=== PATIENT | male | born 1955 ===

== ENCOUNTER 2025-07-28 13:52 | Outpatient (REF) | payer MEDICARE, SELFPAY ==
--- NOTE | 2025-07-28 | EMG_ITS ---
Chief complaint: Bilateral hand numbness particularly 1st 3rd digits, left worse than right Reason for referral: Evaluate for Carpal Tunnel Syndrome Referred by: Dr. Davies Procedure done: Bilateral upper extremities NCS/EMG Precautions and/or limitations: None The limb temperature was monitored continuously and remained between 32-36 degrees C during the performance of the NCS. Nerve Conduction Studies Anti Sensory Summary Table ?Stim Site NR Onset (ms) Norm Onset (ms) Peak (ms) Norm Peak (ms) O-P Amp (?V) Norm O-P Amp Site1 Site2 Delta-0 (ms) Dist (cm) Paul (m/s) Norm Paul (m/s) Left Median Anti Sensory (2nd Digit) Wrist NR <3.6 >10 Wrist 2nd Digit 14.0 Right Median Anti Sensory (2nd Digit) Wrist NR <3.6 >10 Wrist 2nd Digit 14.0 Left Radial Anti Sensory (Thumb) Forearm ? 2.2 2.7 <3.1 18.2 Forearm Thumb 2.2 0.0 Left Ulnar Anti Sensory (5th Digit) Wrist ? 2.9 3.9 <3.7 17.6 >15.0 Wrist 5th Digit 2.9 14.0 48 Right Ulnar Anti Sensory (5th Digit) Wrist ? 2.7 3.6 <3.7 24.4 >15.0 Wrist 5th Digit 2.7 14.0 52 Motor Summary Table ?Stim Site NR Onset (ms) Norm Onset (ms) O-P Amp (mV) Norm O-P Amp iAmp (mV) Amp (1st) (%) Site1 Site2 Delta-0 (ms) Dist (cm) Paul (m/s) Norm Paul (m/s) Left Median Motor (Abd Poll Brev) Wrist ? 10.3 <3.9 4.1 >4.5 5.0 100.0 Elbow Wrist 4.3 21.3 50 >45 Elbow ? 14.6 3.8 4.8 92.7 Right Median Motor (Abd Poll Brev) Wrist ? 7.7 <3.9 6.0 >4.5 7.6 100.0 Elbow Wrist 5.7 23.0 40 >45 Elbow ? 13.4 4.6 6.0 76.7 Left Ulnar Motor (Abd Dig Minimi) Wrist ? 3.0 <3.0 10.6 >5 14.5 100.0 B Elbow Wrist 4.7 22.0 47 >45 B Elbow ? 7.7 9.9 13.5 93.4 A Elbow B Elbow 1.7 10.0 59 >45 A Elbow ? 9.4 9.5 13.2 89.6 Right Ulnar Motor (Abd Dig Minimi) Wrist ? 3.5 <3.0 10.1 >5 15.0 100.0 B Elbow Wrist 4.4 22.0 50 >45 B Elbow ? 7.9 9.3 13.8 92.1 A Elbow B Elbow 1.2 10.0 83 >45 A Elbow ? 9.1 8.4 12.3 83.2 EMG ?Side Muscle Nerve Root Ins Act Fibs Psw Amp Dur Poly Recrt Int Pat Comment Right 1stDorInt Ulnar C8-T1 Nml Nml Nml Nml Nml 0 Nml Complete Right FlexCarRad Median C6-7 Nml Nml Nml Nml Nml 0 Nml Complete Right Biceps Musculocut C5-6 Nml Nml Nml Nml Nml 0 Nml Complete Right Triceps Radial C6-7-8 Nml Nml Nml Nml Nml 0 Nml Complete Right Deltoid Axillary C5-6 Nml Nml Nml Nml Nml 0 Nml Complete Left 1stDorInt Ulnar C8-T1 Nml Nml Nml Nml Nml 0 Nml Complete Left FlexCarRad Median C6-7 Nml Nml Nml Nml Nml 0 Nml Complete Left Biceps Musculocut C5-6 Nml Nml Nml Nml Nml 0 Nml Complete Left Triceps Radial C6-7-8 Nml Nml Nml Nml Nml 0 Nml Complete Left Deltoid Axillary C5-6 Nml Nml Nml Nml Nml 0 Nml Complete FINDINGS: Left median motor nerve showed prolonged distal latency, small amplitude and normal conduction velocity. Right median motor nerve showed prolonged distal latency, normal amplitude and slow conduction velocity. Bilateral median sensory nerves showed absent response. All other nerves tested were within normal. Concentric needle EMG was performed in selected muscles of the bilateral upper extremities. Study did not reveal signs of electric abnormalities as shown in the table above. IMPRESSION: 1. This is an abnormal study. 2. There is electrodiagnostic evidence for bilateral moderate-severe median neuropathy at the wrist, consistent with carpal tunnel syndrome. 3. There is no electrodiagnostic evidence for ulnar neuropathy, brachial plexopathy, or cervical radiculopathy. Thank you for your kind referral. Shanna Carvalho MD, MIKY Board Certified, [place] [employer] and Rehabilitation (ABPMR) Board Certified, [place] Board of Electrodiagnostic Medicine (ABEM) CODIN [phone] x 2 extremities MTDD
--- OUTSIDE RECORDS SUMMARY | 2025-07-28 17:15 | XMS_ITS | Clinical Summary ---
Author Organization [address] [facility] Address [address] [place] [address] Phone Care Team Providers Care Client Support Coordinator Name Role Phone Nidhi Ojeda MD Primary Care Provider [phone] Allergies Active Allergy Reactions Criticality Noted Date Comments Other Medium 02/20/2021 Seasonal Medications polyethylene glycol (Miralax) 17 gram/dose oral powder Take 17 g by mouth daily. 2024 Active polyethylene glycol (PEG) 17 gram/dose oral powder Take 17 g by mouth 1 (one) time each day. 510 g 5 06/08/2025 Active ferrous sulfate 325 mg (65 mg iron) EC tablet Take 1 tablet (325 mg total) by mouth every other day. Do not crush, chew, or split. 45 each 2 06/16/2025 Active Active Problems Problem Noted Date Diagnosed Date Constipation 2024 Assessment & Plan (06/08/2025 7:26 PM EDT): Orders: Hemoglobin A1c; Future Comprehensive metabolic panel; Future Lipid panel with reflex to direct LDL; Future Complete blood count; Future Thyroid stimulating hormone; Future Vitamin B12; Future Vitamin D 25 hydroxy; Future Ambulatory referral to Gastroenterology; Future Neck pain 2024 Encounters Date Type Department Care Team Description 06/16/2025 Results Follow-Up Internal Medicine [facility] [address] [address] Nidhi Ojeda MD 06/08/2025 3:15 PM EDT Office Visit Internal Medicine [facility] 175 [facility] [address] [place] [address] Nidhi Ojeda MD Constipation, unspecified constipation type (Primary Dx); Vitamin D deficiency; Adult general medical examination; Other fatigue; Hyperglycemia; Dyslipidemia; Screening for malignant neoplasm of prostate 06/06/2025 Telephone Internal Medicine [facility] 175 [facility] [address] [place] [address] Nidhi Ojeda MD 06/06/2025 Telephone Internal Medicine [facility] 175 [facility] [address] [place] [address] Nidhi Ojeda MD from Last 3 Months Immunizations Immunization Administration Dates Next Due Pneumococcal conjugate 20 va lent (Prevnar 20, PCV 20) 2mo and older 2024 Family History Medical History Relation Name Comments Leukemia Mother Relation Name Status Comments Mother Social History Tobacco Use Types Packs/Day Years Used Date Smoking Tobacco: Never Smokeless Tobacco: Never Tobacco Cessation:Counseling Given: Not Answered Alcohol Use Standard Drinks/Week Comments Not Currently 0 (1 standard drink = 0.6 oz pur e alcohol) Sex and Gender Information Value Date Recorded Sex Assigned at Not on file Legal Sex Male 5:58 PM EST Gender Identity Not on file Sexual Orientation Not on file Obstetrics History Last Filed Vital Signs Vital Sign Reading Time Taken Comments Blood Pressure 126/62 06/08/2025 4:01 PM EDT Pulse 64 06/08/2025 4:01 PM EDT Temperature 36.6 C (97.9 F) 06/08/2025 4:01 PM EDT Respiratory Rate 18 06/08/2025 4:01 PM EDT Oxygen Saturation 97% 06/08/2025 4:01 PM EDT Inhaled Oxygen Concentration - - Weight 76.2 kg (168 lb) 06/08/2025 4:01 PM EDT Height 177.8 cm (5' 10 ) 06/08/2025 4:01 PM EDT Body Mass Index 24.11 06/08/2025 4:01 PM EDT Plan of Treatment Upcoming Encounters Date Type Department Care Team ([facility] st Contact Info) Description 12/07/2025 2:45 PM EDT Office Visit Internal Medicine [facility] 175 [facility] [address] [place] [address] Nidhi Ojeda MD [address] [place] [phone] Health Maintenance Due Date Last Done Comments DTaP,Tdap,and Td Vaccines (1 - Tdap) 1972 Zoster Vaccines (1 of 2) 2003 Falls Risk Assessment 08/24/2022 Hepatitis C Screening 08/24/2022 Social Influencers of Health Screening 08/24/2022 COVID-19 Vaccine (1 - 2024-2 6 season) 2025 Influenza Vaccine (#1) 2025 Medicare Annual Wellness Visit 06/08/2026 06/08/2025 RSV Immunization Adult Patients (1 - 1-dose 75+ series) 2028 Cholesterol Screening (Lipid Panel) 06/09/2030 06/09/2025, 02/21/2021 Colorectal Cancer Screening: Colonoscopy 09/25/2032 09/25/2022 Pneumococcal Vaccine: 50+ Years Completed 2024 Depression Screening Completed 06/08/2025, 2024 HIB Vaccines Aged Out No longer eligi ble based on patient's age to complete this topic HPV Vaccines Aged Out No longer eligi ble based on patient's age to complete this topic Hepatitis A Vaccines Aged Out No long er eligible based on patient's age to complete this topic Hepatitis B Vaccines Aged Out No long er eligible based on patient's age to complete this topic IPV Vaccines Aged Out No longer eligi ble based on patient's age to complete this topic MMR Vaccines Aged Out No longer eligi ble based on patient's age to complete this topic Meningococcal ACWY Vaccine Aged Out N o longer eligible based on patient's age to complete this topic Meningococcal B Vaccine Aged Out No l onger eligible based on patient's age to complete this topic RSV Immunization Patients Under 20 months Aged Out No longer eligible b ased on patient's age to complete this topic Varicella Vaccines Aged Out No longer eligible based on patient's age to complete this topic Procedures Procedure Name Priority Date/Time Associated Diagnosis Comments HEMOGLOBIN A1C Routine 06/09/2025 10:38 AM EDT Constipation, unspecified constipation type Vitamin D deficiency Adult general medical examination Other fatigue Hyperglycemia Dyslipidemia COMPREHENSIVE METABOLIC PANEL Routine 06/09/2025 10:38 AM EDT Constipation, unspecified constipation type Vitamin D deficiency Adult general medical examination Other fatigue Hyperglycemia Dyslipidemia LIPID PANEL WITH REFLEX TO DIRECT LDL Routine 06/09/2025 10:38 AM EDT Constipation, unspecified constipation type Vitamin D deficiency Adult general medical examination Other fatigue Hyperglycemia Dyslipidemia COMPLETE BLOOD COUNT Routine 06/09/2025 10:38 AM EDT Constipation, unspecified constipation type Vitamin D deficiency Adult general medical examination Other fatigue Hyperglycemia Dyslipidemia THYROID STIMULATING HORMONE Routine 06/09/2025 10:38 AM EDT Constipation, unspecified constipation type Vitamin D deficiency Adult general medical examination Other fatigue Hyperglycemia Dyslipidemia VITAMIN B12 Routine 06/09/2025 10:38 AM EDT Constipation, unspecified constipation type Vitamin D deficiency Adult general medical examination Other fatigue Hyperglycemia Dyslipidemia VITAMIN D 25 HYDROXY Routine 06/09/2025 10:38 AM EDT Constipation, unspecified constipation type Vitamin D deficiency Adult general medical examination Other fatigue Hyperglycemia Dyslipidemia PROSTATE SPECIFIC ANTIGEN SCREEN Routine 06/09/2025 10:38 AM EDT Screening for malignant neoplasm of prostate DEPRESSION SCREENING Routine 2024 COLONOSCOPY Routine 09/25/2022 from Last 3 Months or Most Recently Relevant to Health Maintenance Results * Prostate specific antigen screen (06/09/2025 10:38 AM EDT) PSA 2.92 0.00 - 4.00 ng/mL LAB CHEMISTRY METHOD 06/09/2025 4:06 PM EDT [facility] Blood Venous blood specimen / Unknown Venipuncture / Unknown 06/09/2025 10:38 AM EDT 06/09/2025 10:38 AM EDT Narrative [facility] - 06/09/2025 4:06 PM EDT The Siemens Advia Spoutaur Chemiluminescent Immunoassay is used. Results obtained with different assay methods or kits cannot be used interchangeably. Results cannot be interpreted as absolute evidence of the presence or absence of malignant disease. us Nidhi Ojeda MD LAB BLOOD ORDERABLES Final Res ult [facility] [address] [place] [address], [place] [phone] * (ABNORMAL) Lipid panel with reflex to direct LDL (06/09/2025 10:38 AM EDT) Cholesterol 225(H) 0 - 200 mg/dL LAB CHEMISTRY METHOD 06/09/2025 7:00 PM EDT [facility] Triglycerides 57 0 - 150 mg/dL LAB CHEMISTRY METHOD 06/09/2025 7:00 PM EDT [facility] HDL 68 >=40 mg/dL LAB CHEMISTRY METHOD 06/09/2025 7:00 PM EDT [facility] LDL Calculated 146(H) 0 - 100 mg/dL LAB CHEMISTRY METHOD 06/09/2025 7:00 PM EDT [facility] Comment:Estimated LDL Calcul ated using equation: Total cholesterol - HDL cholesterol - (Triglycerides/5) VLDL Cholesterol Devon 11.4 mg/dL LAB CHEMISTRY METHOD 06/09/2025 7:00 PM EDT [facility] Non HDL Chol. (LDL+VLDL) 157(H) <145 mg/dL LAB CHEMISTRY METHOD 06/09/2025 7:00 PM EDT [facility] Chol/HDL Ratio 3.3 0.0 - 4.4 LAB CHEMISTRY METHOD 06/09/2025 7:00 PM [facility] Blood Venous blood specimen / Unknown Venipuncture / Unknown 06/09/2025 10:38 AM EDT 06/09/2025 10:38 AM EDT us Nidhi Ojeda MD LAB BLOOD ORDERABLES Final Res ult [facility] [address] [place] [address], [place] [phone] * Vitamin D 25 hydroxy (06/09/2025 10:38 AM EDT) [facility] Vit D, 25-Hydroxy 31.8 30.0 - 80.0 ng/mL LAB CHEMISTRY METHOD 06/09/2025 4:06 PM EDT [facility] Blood Venous blood specimen / Unknown Venipuncture / Unknown 06/09/2025 10:38 AM EDT 06/09/2025 10:38 AM EDT Nidhi Ojeda MD LAB BLOOD ORDERABLES Final Res ult [facility] [address] [place] [address], [place] [phone] * (ABNORMAL) Complete blood count (06/09/2025 10:38 AM EDT) [facility] WBC 4.6(L) 4.8 - 10.8 K/mcL LAB HEMETOLOGY METHOD 06/09/2025 2:12 PM EDT [facility] RBC 4.90 4.50 - 5.50 M/mcL LAB HEMETOLOGY METHOD 06/09/2025 2:12 PM EDT [facility] Hemoglobin 13.0(L) 13.5 - 17.5 g/dL LAB HEMETOLOGY METHOD 06/09/2025 2:12 PM EDT [facility] Hematocrit 40.6(L) 42.0 - 54.0 % LAB HEMETOLOGY METHOD 06/09/2025 2:12 PM EDT [facility] MCV 83.7 79.0 - 98.0 FL LAB HEMETOLOGY METHOD 06/09/2025 2:12 PM EDT [facility] MCH 26.8(L) 27.0 - 32.0 pcg LAB HEMETOLOGY METHOD 06/09/2025 2:12 PM EDT [facility] MCHC 32.0 32.0 - 37.0 g/dL LAB HEMETOLOGY METHOD 06/09/2025 2:12 PM EDT [facility] RDW 14.1 11.0 - 15.0 % LAB HEMETOLOGY METHOD 06/09/2025 2:12 PM EDT [facility] Platelets 162 130 - 400 K/mcL LAB HEMETOLOGY METHOD 06/09/2025 2:12 PM EDT [facility] MPV 10.1 7.0 - 11.0 FL LAB HEMETOLOGY METHOD 06/09/2025 2:12 PM EDT [facility] NRBC 0.0 <1.0 % LAB HEMETOLOGY METHOD 06/09/2025 2:12 PM EDT [facility] NRBC Absolute 0.00 <0.10 K/mcL LAB HEMETOLOGY METHOD 06/09/2025 2:12 PM EDT [facility] Blood Venous blood specimen / Unknown Venipuncture / Unknown 06/09/2025 10:38 AM EDT 06/09/2025 10:38 AM EDT us Nidhi Ojeda MD LAB BLOOD ORDERABLES Final Res ult [facility] [address] [place] [address], * Thyroid stimulating hormone (06/09/2025 10:38 AM EDT) TSH 1.27 0.40 - 4.00 mcIU/mL LAB CHEMISTRY METHOD 06/09/2025 5:53 PM EDT [facility] Blood Venous blood specimen / Unknown Venipuncture / Unknown 06/09/2025 10:38 AM EDT 06/09/2025 10:38 AM EDT Nidhi Ojeda MD LAB BLOOD ORDERABLES Final Res ult [facility] [address] [place] [address], [place] [phone] * Hemoglobin A1c (06/09/2025 10:38 AM EDT) Pathologist [facility] Hemoglobin A1C 6.1 <6.5 % LAB CHEMISTRY METHOD 06/09/2025 9:31 PM EDT [facility] Mean Bld Glu Estim. 128 mg/dL LAB CHEMISTRY METHOD 06/09/2025 9:31 PM EDT [facility] Blood Venous blood specimen / Unknown Venipuncture / Unknown 06/09/2025 10:38 AM EDT 06/09/2025 10:38 AM EDT Nidhi Ojeda MD LAB BLOOD ORDERABLES Final Res ult Performing Organization Address City/[facility]/ZIP Co de Phone Number [facility] [address] [place] [address], [place] [phone] * Vitamin B12 (06/09/2025 10:38 AM EDT) [facility] Vitamin B-12 790 250 - 900 pcg/mL LAB CHEMISTRY METHOD 06/09/2025 7:00 PM EDT [facility] Blood Venous blood specimen / Unknown Venipuncture / Unknown 06/09/2025 10:38 AM EDT 06/09/2025 10:38 AM EDT us Nidhi Ojeda MD LAB BLOOD ORDERABLES Final Res ult [facility] [address] [place] [address], [place] [phone] * Comprehensive metabolic panel (06/09/2025 10:38 AM EDT) Sodium 140 133 - 145 mmol/L LAB CHEMISTRY METHOD 06/09/2025 7:00 PM [facility] Potassium 4.2 3.5 - 5.5 mmol/L LAB CHEMISTRY METHOD 06/09/2025 7:00 PM [facility] Chloride 107 96 - 110 mmol/L LAB CHEMISTRY METHOD 06/09/2025 7:00 PM [facility] CO2 27 21 - 32 mmol/L LAB CHEMISTRY METHOD 06/09/2025 7:00 PM [facility] Anion Gap 6 3 - 11 LAB CHEMISTRY METHOD 06/09/2025 7:00 PM [facility] Glucose 89 70 - 100 mg/dL LAB CHEMISTRY METHOD 06/09/2025 7:00 PM [facility] BUN 12 5 - 25 mg/dL LAB CHEMISTRY METHOD 06/09/2025 7:00 PM [facility] Creatinine 1.04 0.70 - 1.30 mg/dL LAB CHEMISTRY METHOD 06/09/2025 7:00 PM [facility] eGFR 76 >=60 mL/min/1. 73m2 LAB CHEMISTRY METHOD 06/09/2025 7:00 PM [facility] Comment:Calculation based on the Chronic Kidney Disease Epidemiology Collaboration (CKD-EPI) equation refit without adjustment for race. BUN/Creatinine Ratio 11.5 LAB CHEMISTRY METHOD 06/09/2025 7:00 PM [facility] Calcium 9.2 8.5 - 10.5 mg/dL LAB CHEMISTRY METHOD 06/09/2025 7:00 PM [facility] AST (SGOT) 18 10 - 42 unit/L LAB CHEMISTRY METHOD 06/09/2025 7:00 PM [facility] ALT (SGPT) 32 10 - 60 unit/L LAB CHEMISTRY METHOD 06/09/2025 7:00 PM [facility] Alkaline Phosphatase 79 42 - 121 unit/L LAB CHEMISTRY METHOD 06/09/2025 7:00 PM EDT [facility] Total Protein 7.1 6.0 - 8.0 g/dL LAB CHEMISTRY METHOD 06/09/2025 7:00 PM EDT [facility] Albumin 4.1 3.2 - 5.0 g/dL LAB CHEMISTRY METHOD 06/09/2025 7:00 PM EDT [facility] Total Bilirubin 1.3 0.0 - 1.4 mg/dL LAB CHEMISTRY METHOD 06/09/2025 7:00 PM EDT [facility] Blood Venous blood specimen / Unknown Venipuncture / Unknown 06/09/2025 10:38 AM EDT 06/09/2025 10:38 AM EDT Nidhi Ojeda MD LAB BLOOD ORDERABLES Final Res ult [facility] [address] [place] [address], * Depression Screening (2024) Pathologist [facility] Depression Screening abstracted Historical [facility] Final Result * Colonoscopy (09/25/2022) Colonoscopy abstracted, no interpretation Anatomical Region Laterality Modality Other Historical [facility] Final Result from Last 3 Months or Most Recently Relevant to Health Maintenance Insurance MEDICARE Care Teams Client Support Coordinator Relationship Specialty Start Date End Date Nidhi Ojeda MD [address] [place] [phone] PCP - General Internal Medicine 09/01/20
--- OUTSIDE RECORDS SUMMARY | 2025-07-28 17:15 | XMS_ITS | Encounter Summary ---
Author Organization [facility] Address [address] [place] [address] Care Team Providers Care Operations Technician Name Role Phone Nidhi Ojeda MD Primary Care Provider Encounter Details Date Type Department Care Team (Late st Contact Info) Description 06/16/2025 Results Follow-Up Internal Medicine - [place] [address] [facility] [address] [place] [phone] Nidhi Ojeda MD [address] [place] [address] Social History Tobacco Use Types Packs/Day Years Used Date Smoking Tobacco: Never Smokeless Tobacco: Never Alcohol Use Standard Drinks/Week Comments Not Currently 0 (1 standard drink = 0.6 oz pur e alcohol) Sex and Gender Information Value Date Recorded Sex Assigned at Not on file Legal Sex Male 5:58 PM EST Gender Identity Not on file Sexual Orientation Not on file documented as of this encounter Ordered Prescriptions Prescription Sig Dispense Quantity Refills Last Filled Start Date End Date ferrous sulfate 325 mg (65 mg iron) EC tablet Take 1 tablet (325 mg total) by mouth every other day. Do not crush, chew, or split. 45 each 2 06/16/2025 documented in this encounter Progress Notes * Sandy Magana MA - 06/20/2025 1:31 PM EDT Multiple attempts and no respond. * Sandy Magana MA - 06/20/2025 1:31 PM EDT ----- Message from Andre Ojeda MD sent at 06/16/2025 8:32 PM EDT ----- Labs ok,except mild anemia, Ask him to take iron supplement every 3 rd day,sent to pharmacy ----- Message ----- From: Lab, Background User Sent: 06/09/2025 2:12 PM EDT To: Nidhi Ojeda MD documented in this encounter Plan of Treatment Upcoming Encounters Date Type Department Care Team (Late st Contact Info) Description 12/07/2025 2:45 PM EDT Office Visit Internal Medicine - [place] 175 [facility] [address] [place] [phone] Nidhi Ojeda MD [address] [place] [phone] documented as of this encounter Visit Diagnoses Not on filedocumented in this encounter Additional Health Concerns Assessment Noted Time PHQ-9 Depression Total Score: 1 06/08/20 25 4:31 PM EDT documented as of this encounter Care Teams Operations Technician Relationship Specialty Start Date End Date Nidhi Ojeda MD 175 [facility] [address] [place] [phone] PCP - General Internal Medicine 09/01/20 documented as of this encounter
== END 2025-07-28 13:53 | disposition home or self-care (01) ==
LOC: HO.NEURO 13:52
PROVIDERS: Visit Provider Physical Medicine & Rehabilitation
DX: G56.03 Carpal tunnel syndrome, bilateral upper limbs (principal); R20.0 Anesthesia of skin
CPT/HCPCS: 95886; 95911

== ENCOUNTER → 2025-07-28 13:57 | Outpatient (BNV) | payer MEDICARE, SELFPAY | PROVIDERS: Visit Provider Physical Medicine & Rehabilitation | DX: G56.03 Carpal tunnel syndrome, bilateral upper limbs (principal) | CPT/HCPCS: 95886; 95911 ==